=== PATIENT | male | born 1965 | race Caucasian/White ===

== ENCOUNTER 2019-07-16 00:42 | Observation (INO) ==
[2019-07-16] MEDS ORDERED: IOPAMIDOL 100 ML BOTTLE IV ONE (00:43)
[2019-07-16] MEDS ORDERED: PIPERACILLIN SODIUM/TAZOBACTAM 4.5 GM in DEXTROSE 5% IN WATER 50 ML IV ONE (00:54)
[2019-07-16] MEDS ORDERED: methylPREDNISolone SOD SUCC 125 MG/2 ML VIAL IV ONE (00:54)
--- NOTE | 2019-07-16 00:58 | Emergency Department Note ---
General Adult HPI - General Chief complaint: Skin/Abscess/Foreign Body Stated complaint: facial swelling Time Seen by Provider: 07/16/19 00:51 Source: patient Mode of arrival: ambulatory Limitations: no limitations - History of Present Illness HPI Narrative: 53-year-old male presenting to the emergency department with chief complaint of facial swelling which occurred after cleaning his teeth with a pair of scissors. Swelling began about 1 hour after cleaning his teeth with scissors. Patient without fever chills nausea vomiting diarrhea. Patient states swelling is diffuse across the left side of his face he was cleaning the lower front tooth. There are no exacerbating or ameliorating factors for this issue. Patient has not had this issue in the past. Patient is without other significant past medical history at this time. - Related Data Home Medications Medication Instructions Recorded Confirmed No Known Home Meds 07/16/19 07/16/19 Allergies Allergy/AdvReac Type Severity Reaction Status Date / Time No Known Allergies Allergy Verified 07/16/19 00:47 Review of Systems All systems ED: reviewed and negative except as stated. Past Medical History - Social History smoking status: Current every day smoker Physical Exam General: Alert, interactive, appropriate Head: Atraumatic, normocephalic Eyes: Extraocular movements intact Face: Patient with diffuse swelling to the left side of his face predominantly there is some erythema to the skin around the maxilla patient with significant edema and swelling to the lips upper and lower more on the left than the right side, patient without tongue swelling or airway swelling on exam. However the amount of swelling in his face is is profound Neck: Trachea midline, full range of motion Chest: Symmetrical chest wall rise, breathing normally Cardiovascular: Patient with excellent perfusion to the extremities Extremities: Full range of motion joints, warm well perfused Neuro: Alert, oriented x3, cranial nerves II through XII grossly intact, normal gait Psychiatric: Normal affect normal mood Limitations: no limitations Course Vital Signs Temperature 98.4 F 07/16/19 00:43 Pulse Rate 113 H 07/16/19 00:43 Respiratory Rate 20 07/16/19 00:43 Blood Pressure 125/92 07/16/19 00:43 Pulse Oximetry (%) 100 07/16/19 00:43 Temperature 98.4 F 07/16/19 00:43 Pulse Rate 102 H 07/16/19 03:05 Respiratory Rate 24 H 07/16/19 03:05 Blood Pressure 125/92 07/16/19 00:51 Pulse Oximetry (%) 95 07/16/19 03:05 Medical Decision Making - MDM Narrative Medical decision making narrative: I consider the following differential diagnosis: Facial cellulitis, staph/strep infection, necrotizing fasciitis, gangrene, zoster, infection extending into the joint/bursa/bone. In my medical opinion at this time the patient can reasonably be followed up as an inpatient and will be given a dose of Zosyn immediately as well as Solu-Medrol to reduce edema and swelling which I am concerned might progress to involve the upper airway. Patient also given fluid bolus. Labs obtained included CBC CMP lactate blood cultures. CT facial with contrast is obtained. Extensive severe left-sided facial cellulitis with subcutaneous inflammatory phlegmon. No organized enhancing abscess or drainable fluid collection is seen at this time. Patient observed in the emergency department for over 2-1/2 hours without extensive progression however the rapid onset and severity of this case makes admission to the hospital critical. Patient excepted by the hospitalist patient was given Zosyn and vancomycin in the emergency department. - Lab Data Result diagrams: 07/16/19 00:55 07/16/19 00:55 Lab Results 07/16/19 07/16/19 07/16/19 Range/Units 00:55 00:55 00:55 WBC 11.5 H (4.50-11.00) K/mcL RBC 5.06 (4.63-6.08) M/mcL Hgb 14.9 (13.7-17.5) g/dL Hct 43.9 (40.1-51.0) % MCV 86.8 (80.0-100.0) fL MCH 29.4 (26.0-34.0) pg MCHC 33.9 (31.0-36.0) g/dL RDW 13.0 (11.5-14.5) % Plt Count 260 (140-440) K/mcL MPV 9.0 (7.4-10.4) fL Gran % 69.8 (38.0-78.0) % Lymph % (Auto) 19.9 (15.5-49.0) % Hand % (Auto) 7.1 (1.0-12.0) % Eos % (Auto) 2.8 (0.0-7.0) % Baso % (Auto) 0.4 (0.0-2.0) % Gran # 8.00 (1.80-8.00) K/mcL Lymph # (Auto) 2.28 (1.50-4.80) K/mcL Hand # (Auto) 0.81 (0.10-0.90) K/mcL Eos # (Auto) 0.32 (0.00-0.70) K/mcL Baso # (Auto) 0.05 (0.00-0.30) K/mcL VBG Lactic Acid 1.9 (0.5-2.0) mmol/L Sodium 137 (133-145) mmol/L Potassium 4.0 (3.3-5.1) mmol/L Chloride 100 (96-108) mmol/L Carbon Dioxide 22 (22-30) mmol/L Anion Gap 15.0 (8-16) BUN 19 (6-20) mg/dl Creatinine 1.1 (0.7-1.2) mg/dl GFR Calculation 76 Glucose 114 H (70-105) mg/dL Calcium 9.3 (8.6-10.4) mg/dl Total Bilirubin 0.5 (0.0-1.0) mg/dL AST 28 (0-37) U/l ALT 30 (0-40) U/l Alkaline Phosphatase 111 (39-117) U/L Total Protein 7.7 (5.9-8.4) gm/dL Albumin 4.4 (3.2-5.2) gm/dL Globulin 3.3 (2.2-3.7) gm/dL Albumin/Globulin Ratio 1.3 (1.0-2.3) Disposition 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
[2019-07-16 01:55] LABS: Basophils # (Auto) 0.05 K/mcL (0.00-0.30); Basophils % (Auto) 0.4 % (0.0-2.0); Eosinophils # (Auto) 0.32 K/mcL (0.00-0.70); Eosinophils % (Auto) 2.8 % (0.0-7.0); Granulocytes % (Auto) 69.8 % (38.0-78.0); Hematocrit 43.9 % (40.1-51.0); Hemoglobin 14.9 g/dL (13.7-17.5); Lymphocytes # (Auto) 2.28 K/mcL (1.50-4.80); Lymphocytes % (Auto) 19.9 % (15.5-49.0); Mean Cell Volume 86.8 fL (80.0-100.0); Mean Corpuscular HGB Conc 33.9 g/dL (31.0-36.0); Monocytes # (Auto) 0.81 K/mcL (0.10-0.90); Monocytes % (Auto) 7.1 % (1.0-12.0); Platelet Count 260 K/mcL (140-440); RBC 5.06 M/mcL (4.63-6.08); WBC 11.5 K/mcL (4.50-11.00)
[2019-07-16 02:06] LABS: ALT/SGPT 30 U/l (0-40); AST/SGOT 28 U/l (0-37); Albumin 4.4 gm/dL (3.2-5.2); Albumin/Globulin Ratio 1.3 (1.0-2.3); Alkaline Phosphatase 111 U/L (39-117); Bilirubin,Total 0.5 mg/dL (0.0-1.0); Blood Urea Nitrogen 19 mg/dl (6-20); Calcium 9.3 mg/dl (8.6-10.4); Carbon Dioxide 22 mmol/L (22-30); Chloride 100 mmol/L (96-108); Globulin 3.3 gm/dL (2.2-3.7); Glomerular Filtration Rate 76; Glucose 114 mg/dL (70-105)
[2019-07-16] MEDS ORDERED: VANCOMYCIN 1,000 MG in 0.9 % SODIUM CHLORIDE 250 ML IV ONE (03:19)
[2019-07-16] MEDS: NICOTINE 21 MG PATCH TOPICAL SCH ×2 (07:22→13:14)
--- NOTE | 2019-07-16 08:34 | Cat Scan Report ---
History: Left-sided facial swelling and cellulitis TECHNIQUE: The face was imaged following injection of intravenous contrast scanning at 2.5 mm intervals. Sagittal and coronal reformats were created. Radiation exposure was limited using dose reduction technology. FINDINGS: There is severe cellulitis anteriorly and in the left side of the face, extending from the level of the mandible up to the upper margin of the left maxilla. There is severe periodontal disease. Patient has numerous missing teeth on both sides of the maxilla and mandible. There is severe resorption of bone around the few remaining premolars and molars on the right side of the maxilla. There is a zone of disrupted cortex along the superior margin of the left mandible where teeth had either fallen out or had been extracted. The soft tissue inflammation is centered around this area. Lateral to the disrupted bone there is a 1 x 3 cm low-attenuation irregularly shaped structure which could be an abscess or phlegmon. This is seen on axial image #32. There is mild nodular mucosal thickening along the wall of left the maxillary sinus due to chronic sinusitis. The wall of the left maxilla is intact and there are no air-fluid levels. There is no inflammation in the orbits. No intracranial abscess is seen. There is degenerative disc disease and arthritis at multiple levels in the cervical spine. Severe disc space narrowing is present at C5-6 and there is severe stenosis of neural foramina bilaterally at that level. Large amount calcified plaque is present in the carotid bifurcations bilaterally. There are a few reactive lymph nodes in the carotid space bilaterally, left larger than right. Largest measures 1.2 cm. IMPRESSION: Severe periodontal disease with erosion of bone in the upper margin of the left side of the mandible, at the site where teeth had been extracted or fallen out. Lateral to this there is a 1 x 3 cm abscess or phlegmon. Surrounding this, there is severe cellulitis in the face Interpreted and Authenticated by: Raji Olvera 07/16/19
[2019-07-16] MEDS ORDERED: FLU VACC QS2019-20(6MOS UP)/PF 60 MCG/0.5 ML SYRINGE IM ONE (10:00)
--- NOTE | 2019-07-16 12:32 | Internal Med History&Physical ---
Medical - H&P: HPI Patient information: Note initiated : 07/16/19 at 12:29 pm Service Date, if different from initiated Date: [] Patient: Raman Lopze 53 y/o M admitted on 07/16/19 for Facial Swelling. 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 He had a leukocytosis of 12,000 and the ER physician was concerned about cellulitis and was started him on broad-spectrum antibiotic. Patient had erythema of the left face and mainly lip swelling no tongue swelling no airway compromise no wheezing. No fever no chills no tachycardia no hypotension. By the time I evaluated the patient his swelling almost gone he still has some lip swelling and he has some minimal erythema but not warm not tender. Patient also has a spider bite on his left forearm most likely a black spider bite based on the way the skin changes look like. No erythema or cellulitis surrounding. - Constitutional Constitutional: Absent: chills, daytime sleepiness, excessive sweating, fatigue, fever(s), frequent falls, headache(s) - EENT Ears: Present: as per HPI. Absent: decreased hearing, ear discharge, ear pain Nose, mouth and throat: Present: as per HPI - Cardiovascular Cardiovascular: Present: dyspnea on exertion. Absent: chest pain with activity, claudication, diaphoresis, dyspnea, edema, irregular heart rhythm - Respiratory Respiratory: Present: dyspnea on exertion. Absent: cough, hemoptysis, pain on inspirtation, chest congestion - Gastrointestinal Gastrointestinal: Absent: change in stool character, coffee ground emesis, constipation, cramping, diarrhea - Genitourinary Genitourinary: Absent: change in urinary stream, difficulty urinating, dysuria - Neurological Neurological: Absent: burning sensations, confusion, convulsions, disequilibri um, dizziness - Psychiatric Psychiatric: Absent: auditory hallucinations, behavioral changes, change in appetite Medical - H&P: PMH Medical history: No pertinent medical history reported Denied any CAD CVA History of smoking History suggestive of probable obstructive airway disease Surgical history: No major surgical history Family history: reviewed and not pertinent Social history: Continued smoking Denied any alcoholism Smoking status: Current every day smoker Time spent discussing smoking cessation with patient: more than 10 minutes Drug use: none Alcohol use: none Medical - H&P: Meds Home Medications Medication Instructions Recorded Confirmed Type No Known Home Meds 07/16/19 07/16/19 History Allergies Allergy/AdvReac Type Severity Reaction Status Date / Time No Known Allergies Allergy Verified 07/16/19 00:47 Medical - H&P: Exam - Constitutional Vitals: Temp Pulse Resp BP Pulse Ox 96.5 F L 95 H 18 119/79 98 07/16/19 08:00 07/16/19 08:00 07/16/19 04:00 07/16/19 08:00 07/16/19 08:00 General appearance: cooperative - Head Additional comments: Examination showed minimal swelling and erythema around the left cheek not warm nontender Swelling of the lip mostly on the left side no sensory deficit no motor deficit No tenderness of the temporal bone - ENT ENT exam: Present: mucous membranes moist, normal external ear exam, normal oropharynx - Expanded ENT Exam Ear exam: Absent: auricular hematoma, auricular trauma, external canal tenderness Nose & sinuses exam: Present: external nose, grossly normal, nasal mucusa, septum and turbinates normal Teeth exam: Present: dental caries, gingival enlargement Throat exam: Present: normal inspection - Respiratory Respiratory exam: Present: normal respiratory exam. Absent: accessory muscle use, respiratory distress, rhonchi, stridor, wheezes - Cardiovascular Cardiovascular exam: Present: normal rate and rhythm. Absent: bradycardia, JVD, +S3, +S4, systolic murmur - GI/Abdominal GI/Abdominal exam: Present: normal bowel sounds, soft, distended - Neurological Exam Neurological exam: Present: alert, normal gait, oriented X3, reflexes normal. Absent: motor sensory deficit - Psychiatric Psychiatric exam: Present: anxious. Absent: agitated, depressed Medical - H&P: Reslt - Labs CBC & Chem 7: 07/16/19 00:55 07/16/19 00:55 Labs: Short CBC 07/16/19 Range/Units 00:55 WBC 11.5 H (4.50-11.00) K/mcL Hgb 14.9 (13.7-17.5) g/dL Hct 43.9 (40.1-51.0) % Plt Count 260 (140-440) K/mcL BMP 07/16/19 00:55 Sodium 137 Potassium 4.0 Chloride 100 Carbon Dioxide 22 BUN 19 Creatinine 1.1 Glucose 114 H Calcium 9.3 Liver Function 07/16/19 Range/Units 00:55 Total Bilirubin 0.5 (0.0-1.0) mg/dL AST 28 (0-37) U/l ALT 30 (0-40) U/l Alkaline Phosphatase 111 (39-117) U/L Albumin 4.4 (3.2-5.2) gm/dL Medical - H&P: A/P - Narrative A/P Narrative: Probable spider bite AND Allergic reaction Patient was admitted with a left-sided facial swelling lip swelling no urticaria Initially concern for cellulitis but his symptoms were acute onset and resolved overnight Patient reported spider bite 2 days ago and this is most likely allergic reaction to the spider bite No features of anaphylaxis no wheezing no respiratory compromise no GI symptoms Discussed with the patient and patient was very adamant to be discharged We will start him on prednisone 40 mg daily for next 5 days and Benadryl as needed Strongly encouraged the patient to come back if he feel any symptoms We will also start him on Augmentin 875 to prevent cellulitis at the spider bite site Probable obstructive airway disease and tobaccoism Continued smoking History suggestive of obstructive airway disease Strongly encouraged the patient outpatient follow-up with the primary care and PFT Strongly encouraged him to cut back and quit smoking Medical - H&P: Qual - VTE Deep Vein Thrombosis/Pulmonary Embolism Present on Admission: No
--- NOTE | 2019-07-16 12:36 | Discharge Summary ---
Medical - DS: Prov Patient information: Note initiated : 07/16/19 at 12:34 pm Service Date, if different from initiated Date: [] Patient: Raman Lopez 53 y/o M admitted on 07/16/19 for Facial Swelling. 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 He had a leukocytosis of 12,000 and the ER physician was concerned about cellulitis and was started him on broad-spectrum antibiotic. Patient had erythema of the left face and mainly lip swelling no tongue swelling no airway compromise no wheezing. No fever no chills no tachycardia no hypotension. By the time I evaluated the patient his swelling almost gone he still has some lip swelling and he has some minimal erythema but not warm not tender. Patient also has a spider bite on his left forearm most likely a black spider bite based on the way the skin changes look like. No erythema or cellulitis surrounding. Probable spider bite AND Allergic reaction Patient was admitted with a left-sided facial swelling lip swelling no urticaria Initially concern for cellulitis but his symptoms were acute onset and resolved overnight Patient reported spider bite 2 days ago and this is most likely allergic reaction to the spider bite No features of anaphylaxis no wheezing no respiratory compromise no GI symptoms Discussed with the patient and patient was very adamant to be discharged We will start him on prednisone 40 mg daily for next 5 days and Benadryl as needed Strongly encouraged the patient to come back if he feel any symptoms We will also start him on Augmentin 875 to prevent cellulitis at the spider bite site Probable obstructive airway disease and tobaccoism Continued smoking History suggestive of obstructive airway disease Strongly encouraged the patient outpatient follow-up with the primary care and PFT Strongly encouraged him to cut back and quit smoking Discharge diagnosis: Spider bite, allergic reaction - Time Spent with Patient Total time spent providing and/or coordinating discharge services: Greater than 30 minutes Medical - DS: Exam - Constitutional Vitals: Vital Signs Temp Pulse Pulse Resp BP BP Pulse Ox 07/16/19 08:00 96.5 F L 95 H 119/79 98 07/16/19 04:00 98.9 F 103 H 18 145/80 95 07/16/19 03:53 103 H 22 95 07/16/19 03:46 96 H 18 141/76 94 07/16/19 03:31 102 H 32 H 129/90 94 07/16/19 03:16 101 H 141/83 94 07/16/19 03:09 96 H 17 135/76 94 07/16/19 03:05 102 H 24 H 95 07/16/19 01:51 104 H 18 96 07/16/19 01:24 106 H 19 97 07/16/19 00:51 116 H 18 125/92 100 07/16/19 00:43 98.4 F 113 H 20 125/92 100 Intake and Output 07/15/19 07/16/19 07/16/19 21:59 05:59 13:59 Intake Total 300 240 Balance 300 240 Intake: IV 300 Zosyn 4.5 gm In Dextrose 5% in 50 Water 50 ml @ 100 mls/hr IV ONCE ONE Rx#:[id number] Vancomycin 1,000 mg In Sodium 250 Chloride 0.9% 250 ml @ 250 mls/ hr IV ONCE ONE Rx#:[id number] Oral 240 Other: Meal Breakfast Percent of Meal Consumed 100% Weight 230 lb 9.6 oz - Head Head exam: Present: normal inspection, normocephalic - Eye Eye exam: Present: normal appearance. Absent: conjunctival injection, nystagmus, periorbital swelling, periorbital tenderness - ENT Additional comments: Swelling and redness significantly improved and almost disappeared on the left cheek Lip swelling mild improving No warmth nontender - Respiratory Respiratory exam: Present: normal respiratory exam. Absent: accessory muscle use, chest wall tenderness, respiratory distress, rhonchi, stridor - Cardiovascular Cardiovascular exam: Present: normal rate and rhythm. Absent: bradycardia, diastolic murmur, JVD, +S3, +S4 - GI/Abdominal GI/Abdominal exam: Present: normal bowel sounds, soft. Absent: distended - Neurological Exam Neurological exam: Present: alert, oriented X3, reflexes normal. Absent: altered, motor sensory deficit - Psychiatric Psychiatric exam: Present: anxious, normal affect. Absent: agitated Medical - DS: Data Labs on day of discharge: Labs from last 24 hours 07/16/19 07/16/19 07/16/19 00:55 00:55 00:55 WBC 11.5 H RBC 5.06 Hgb 14.9 Hct 43.9 MCV 86.8 MCH 29.4 MCHC 33.9 RDW 13.0 Plt Count 260 MPV 9.0 Gran % 69.8 Lymph % (Auto) 19.9 [place] % (Auto) 7.1 Eos % (Auto) 2.8 Baso % (Auto) 0.4 Gran # 8.00 Lymph # (Auto) 2.28 [place] # (Auto) 0.81 Eos # (Auto) 0.32 Baso # (Auto) 0.05 VBG Lactic Acid 1.9 Sodium 137 Potassium 4.0 Chloride 100 Carbon Dioxide 22 Anion Gap 15.0 BUN 19 Creatinine 1.1 GFR Calculation 76 Glucose 114 H Calcium 9.3 Total Bilirubin 0.5 AST 28 ALT 30 Alkaline Phosphatase 111 Total Protein 7.7 Albumin 4.4 Globulin 3.3 Albumin/Globulin Ratio 1.3 Medical - DS: A/P - Patient/Caregiver Discharge Instructions Activity: increase activity as tolerated Diet: Low Sodium (2gm) Prescriptions: Amoxicillin/Potassium Clav [Augmentin] 875 mg PO Q12H 5 Days #10 tab Transmission Status: Pending to [id number] predniSONE [Prednisone] 40 mg PO DAILY 5 Days #10 tab Transmission Status: Pending to [id number] - Follow up Plan Follow up with: No,PCP [Referring] - Disposition: Home, Self-Care Prognosis: Critical Rehab Potential: Good I certify that the patient requires SNF services: No Overall status at discharge: patient is progressing back to baseline Medical - DS: Qual - VTE Deep Vein Thrombosis/Pulmonary Embolism Present on Admission: No
== END 2019-07-16 12:50 | disposition home or self-care (01) ==
LOC: ED 00:42 → MEDSUR 00:42
PROVIDERS: ADMIT Internal Medicine; ATTEND Internal Medicine